=== PATIENT | male | born 1950 | race Hispanic/Latino ===

== ENCOUNTER 2021-08-14 18:52 | Emergency (ER) | payer SELFPAY ==
[2021-08-14 19:04] VITALS: BP 176/83; PULSE 87; RESP 18; TEMP 36.7; O2SAT 96
--- NOTE | 2021-08-14 20:05 | ED.GENADULT ---
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 Patient reports through the moisture conditioner operator that it started as itching 3 days ago. Blisters started 2 days ago. Pain with movement and inflammation noted small blisters distal aspect small half centimeter by half centimeter pus pocket noted Related Data Allergies Allergy/AdvReac Type Severity Reaction Status Date / Time Penicillins Allergy Rash Verified 08/14/21 20:28 Review of Systems Review of Systems: All systems reviewed & are unremarkable except as noted in HPI and below Constitutional: Constitutional: Reports no additional constitutional complaints, Denies chills and Denies fever(s) Eyes: Eyes: Reports no additional eye complaints ENT: Reports system reviewed and no additional complaints, except as documented Cardiovascular: Cardiovascular: Reports no additional cardiovascular complaints Respiratory: Respiratory: Reports no additional respiratory complaints Gastrointestinal: Gastrointestinal: Reports no additional gastrointestinal complaints Musculoskeletal: Musculoskeletal: Reports no additional musculoskeletal complaints Integumentary/Breasts: Skin/Breast: Reports as per HPI, Reports erythema and Reports rash Neurologic: Reports system reviewed and no additional complaints, except as documented Psychiatric: Psychiatric: Reports no additional psychiatric complaints Allergic/Immunologic: Allergic/Immunologic: Reports no additional allergic/immunologic complaints PMFSH Past Medical History Medical History (Updated 08/16/21 @ 10:10 by Lexis Sandhu) Patient denies medical problems Surgical History Surgical History (Updated 08/16/21 @ 10:06 by Lexis Sandhu) No significant past surgical history Social History Social History (Updated 08/16/21 @ 10:06 by Lexis Sandhu) Gender identity (if verbalized by the patient): Male Comments At the time of my signature, I reviewed and agree with the nursing past medical, surgical, social, and family history. There is no relevant family history pertinent to the patient complaint. Exam Const: General: healthy appearing, no acute distress and alert Orientation/consciousness: patient oriented x3 Limitations: language barrier (Used moisture conditioner operator, Ethiopian, Jesse) HENMT: Head: normal to inspection Neck: Neck: normal visual inspection Chest: Chest palpation & inspection: normal inspection of the chest Resp: Effort & Inspection: normal respiratory effort Cardio: Rate: regular rate Rhythm: regular rhythm Back/Spine/Pelvis: Back: no CVA tenderness Skin: Other: Rash with pus pocket and a small blister noted to the palmar aspect right second finger with redness that is not circumferential and does not extend into the palm Neuro: General: patient oriented x3, moves all extremities, no meningeal signs and no focal motor deficits Speech: normal speech Gait exam (Neuro): Normal gait present Extrem: General: normal to inspection Psych: Appearance: grossly normal and well kempt Mental Status: mental status grossly normal Affect: normal affect Attitude: cooperative Thought content: Yes Normal thought content present Course Course Emergency Course: Discharge instructions reviewed with patient, as well as provided in writing per nursing staff. The instructions also include specific and strict return/GO TO THE ER as well as f/u information. All questions have been answered, and the patient deny any further questions with discharge and discharge plan. Communicated through moisture conditioner operator and discharge instructions in Ethiopian Level of Care: Express Care Visit Vital Signs Vital si
== END 2021-08-14 20:48 | disposition home or self-care (01) ==
PROVIDERS: Emergency Provider Nurse Practitioner
DX: L03.011 Cellulitis of right finger (principal)
CPT/HCPCS: 10060; 87070; 87075; 87147; 87186; 87205; 99213; G0463